=== PATIENT | female | born 1965 | race Hispanic/Latino ===

== ENCOUNTER → 2017-10-27 | Outpatient (CLI) | payer OTHER | END | disposition home or self-care (01) | LOC: OIH 14:36 | PROVIDERS: ATTEND Internal Medicine Cardiovascular Disease | DX: Z13.6 Encounter for screening for cardiovascular disorders (principal) | CPT/HCPCS: 75571 ==

== ENCOUNTER 2022-12-16 08:00 | Observation (INO) | payer BC ==
[~2022-12-16] VITALS: Ht 170.2 cm; Wt 79.0 kg
[2022-12-19 09:30] VITALS: BP 150/79; PULSE 66; RESP 18
[2022-12-19 09:47] LABS: BASOPHILS % (AUTO) 0.6 % (0.0-5.0); EOSINOPHILS % (AUTO) 2.6 % (0.0-8.0); HEMATOCRIT 40.3 % (36-48); LYMPHOCYTES % (AUTO) 30.2 % (21.0-51.0); MEAN CORPUSCULAR HEMOGLOBIN 30.6 pg (27.0-33.0); MEAN CORPUSCULAR HGB CONC 33.5 g/dL (32.0-36.0); MEAN CORPUSCULAR VOLUME 91.4 fL (79-99); NEUTROPHILS % (AUTO) 57.3 % (40.0-77.0); PLATELET COUNT (AUTO) 217 K/uL (130-400); RED BLOOD CELL COUNT(AUTO) 4.41 MIL/uL (4.00-5.50); RED CELL DISTRIBUTION WIDTH 12.2 % (11.0-15.5); WHITE BLOOD COUNT (AUTO) 6.5 K/uL (4.8-10.8)
[2022-12-19] MEDS ORDERED: LATA2.5D14 OU (09:59)
[2022-12-19] MEDS ORDERED: NAPR-1023 PO (09:59)
[2022-12-19] MEDS ORDERED: LOSA25TA41 PO (09:59)
[2022-12-19] MEDS ORDERED: ROSU5TAB12 PO (09:59)
[2022-12-19 11:14] LABS: ERYTHROCYTE SEDIMENTATION RATE 32 MM/HR (0-30)
[2022-12-20] VITALS (31 sets, daily range): BP systolic 109–142; BP diastolic 61–97; PULSE 75–117; RESP 14–20; O2SAT 96–98
[2022-12-20] MEDS ORDERED: LACTATED RINGERS 1000ML 1,000 ML IV ONE (06:25)
[2022-12-20] MEDS ORDERED: CEFAZOLIN SODIUM 2 GM VIAL ONE (06:25)
[2022-12-20] MEDS: DEXAMETHASONE SOD PHOSPHATE 4 MG/ML 1ML VIAL IVP SCH ×2 (06:30→18:07)
[2022-12-20] MEDS ORDERED: PROPOFOL 10 MG/ML 20ML VIAL IV ONE ×2 (06:58→10:51)
[2022-12-20] MEDS ORDERED: SUCCINYLCHOLINE CHLORIDE 20 MG/ML 10 ML VIAL ONE (06:58)
[2022-12-20] MEDS ORDERED: DEXAMETHASONE SOD PHOSPHATE 10MG/ML 1ML VIAL ONE ×2 (06:58→07:03)
[2022-12-20] MEDS ORDERED: LIDOCAINE PF 100MG/5ML (2%) SYRINGE 5ML ONE (06:58)
[2022-12-20] MEDS ORDERED: GLYCOPYRROLATE 1 MG/5 ML SYRINGE ONE (06:58)
[2022-12-20] MEDS ORDERED: FENTANYL CITRATE PF 50 MCG/1 ML 2ML VIAL ONE (06:59)
[2022-12-20] MEDS ORDERED: ROCURONIUM 10MG/1ML SYR 10 MG/ML ML ONE ×2 (06:59→11:02)
[2022-12-20] MEDS ORDERED: MIDAZOLAM HCL 1 MG/ML 2ML VIAL ONE (06:59)
[2022-12-20] MEDS ORDERED: ONDANSETRON 4MG INJ ONE ×2 (06:59→07:03)
[2022-12-20] MEDS ORDERED: PHENYLEPHRINE HCL 10 MG/ML 1ML VIAL IV ONE ×2 (07:02→11:47)
[2022-12-20] MEDS ORDERED: NEOSTIGMINE 5MG/5ML SYR IV ONE (07:09)
[2022-12-20] MEDS ORDERED: CEFAZOLIN SODIUM 1 GM VIAL ONE ×2 (07:16→11:10)
[2022-12-20] MEDS ORDERED: THROMBIN-JMI 20000 UNIT KIT TP ONE (07:16)
[2022-12-20] MEDS ORDERED: CEFAZOLIN SODIUM 1 GM VIAL IVPB ONE (07:30)
[2022-12-20] MEDS ORDERED: LIDOCAINE 2%-EPI PF 30 ML+BUPIVACAINE/PF 0.25% 30ML /60ML SYR IJ SCH ×2 (07:30)
[2022-12-20] MEDS ORDERED: THROMBIN 20000 UNITS/VIAL POWDER TP ONE (07:31)
[2022-12-20] MEDS ORDERED: PROPOFOL 1000 MG/100 ML 100 ML IV ONE (07:33)
[2022-12-20] MEDS ORDERED: CEFAZOLIN SODIUM 2 GM VIAL IVPB ONE (07:33)
[2022-12-20] MEDS ORDERED: MANNITOL 20% 500ML BAG 500 ML IV ONE (07:33)
[2022-12-20] MEDS ORDERED: FENTANYL CITRATE PF 50 MCG/1 ML 5ML AMP IV ONE ×2 (08:12→09:31)
[2022-12-20] MEDS ORDERED: EPHEDRINE SULFATE 50 MG/ML AMPULE ONE (12:07)
[2022-12-20] MEDS ORDERED: NALOXONE HCL 0.4 MG/1 ML ML ONE (12:22)
[2022-12-20] MEDS ORDERED: 0.9%NACL 10ML VIAL IVP PRN (12:30)
[2022-12-20] MEDS ORDERED: MORPHINE 2 MG SYG IVP PRN (12:30)
[2022-12-20] MEDS ORDERED: PROMETHAZINE HCL 25 MG/ML 1ML AMPULE IM PRN (12:30)
[2022-12-20] MEDS ORDERED: NAPROXEN 500 MG TABLET PO PRN (12:30)
[2022-12-20] MEDS: LACTATED RINGERS 1000ML 1,000 ML IV SCH (12:30)
[2022-12-20] MEDS ORDERED: ESMOLOL HCL 10 MG/ML 10 ML VIAL ONE (13:23)
[2022-12-20] MEDS: Rosuvastatin Calcium 5 MG PO SCH (18:58)
[2022-12-20] MEDS ORDERED: CEFAZOLIN SODIUM 1 GM VIAL IVPB SCH (19:30)
[2022-12-20] MEDS: LATANOPROST 2.5 ML DROPS OU SCH (19:59)
[2022-12-20] MEDS: HYDROCODONE/ACETAMINOPHEN 5/325 MG TAB PO PRN (20:06)
[2022-12-21] VITALS (8 sets, daily range): BP systolic 121–159; BP diastolic 69–88; PULSE 66–101; RESP 16–18; O2SAT 95–96
[2022-12-21] MEDS: LACTATED RINGERS 1000ML 1,000 ML IV SCH (01:50)
[2022-12-21] MEDS: DEXAMETHASONE SOD PHOSPHATE 4 MG/ML 1ML VIAL IVP SCH ×4 (05:36→23:45)
[2022-12-21] MEDS: LOSARTAN 25 MG TABLET PO SCH (09:13)
[2022-12-21] MEDS: HYDROCODONE/ACETAMINOPHEN 5/325 MG TAB PO PRN (18:06)
[2022-12-21] MEDS: LATANOPROST 2.5 ML DROPS OU SCH (19:49)
[2022-12-21] MEDS: Rosuvastatin Calcium 5 MG PO SCH (19:49)
[2022-12-22 03:57] VITALS: BP 140/84; PULSE 62; RESP 18
[2022-12-22] MEDS: DEXAMETHASONE SOD PHOSPHATE 4 MG/ML 1ML VIAL IVP SCH (05:16)
[2022-12-22] MEDS: HYDROCODONE/ACETAMINOPHEN 5/325 MG TAB PO PRN (06:51)
[2022-12-22 07:41] VITALS: O2SAT 95
[2022-12-22 08:00] VITALS: BP 149/81; PULSE 64; RESP 18
[2022-12-22] MEDS: LOSARTAN 25 MG TABLET PO SCH (08:56)
== END 2022-12-22 09:35 | disposition home or self-care (01) ==
LOC: DAHIP 12-20 05:56 → EDSTATUS 12-20 08:00 → 4BH 12-20 15:30
PROVIDERS: ADMIT Neurological Surgery; ATTEND Neurological Surgery
DX: M54.12 Radiculopathy, cervical region (principal); Z20.822 Contact with and (suspected) exposure to COVID-19; M25.78 Osteophyte, vertebrae; M48.02 Spinal stenosis, cervical region; G99.2 Myelopathy in diseases classified elsewhere; I10 Essential (primary) hypertension; M06.9 Rheumatoid arthritis, unspecified; M35.00 Sjogren syndrome, unspecified; E66.9 Obesity, unspecified; K21.9 Gastro-esophageal reflux disease without esophagitis; Z79.899 Other long term (current) drug therapy
CPT/HCPCS: 80051; 84702; 85025; 85651; 87426; 36415; 71045; 22853 ×3; 22551; 22552 ×2; 20930; 96365; 96375; 72020; 96376 ×2; G0378 ×45; A4510; A4663; J7030; A4344; J7120; J3010 ×3; J0690 ×6; J2310; J3490 ×7; J1100 ×8; J2710; J0330; J2270; J2001; J2250; J2704 ×3; J2405 ×2; J2371 ×2; A4649 ×2; C1776; A4215; A4223; A4222; A4221; A4600

== ENCOUNTER → 2023-01-20 | Outpatient (CLI) | payer BC ==
[~2023-01-20] MED LIST: LATA2.5D14 OU; LOSA25TA41 PO; NAPR-1023 PO; ROSU5TAB12 PO
== END | disposition home or self-care (01) ==
LOC: RAH 10:05
PROVIDERS: ATTEND Neurological Surgery
DX: M43.22 Fusion of spine, cervical region (principal); Z98.1 Arthrodesis status
CPT/HCPCS: 72040